=== PATIENT | male | born 1985 | race Hispanic/Latino ===

== ENCOUNTER 2023-09-14 04:20 | Emergency (ER) | payer BC ==
[~2023-09-14] VITALS: Ht 180.3 cm; Wt 112.0 kg
[2023-09-14 04:48] LABS: BASOPHILS # (AUTO) 0.02 K/uL (0.00-0.20); BASOPHILS % (AUTO) 0.2 % (0.0-5.0); HEMATOCRIT 46.5 % (42-54); IMMATURE GRANULOCYTE ABSOLUTE 0.06 K/uL (0-1); LYMPHOCYTES # (AUTO) 1.9 K/uL (1.0-4.8); LYMPHOCYTES % (AUTO) 18.9 % (21.0-51.0); MEAN CORPUSCULAR HEMOGLOBIN 28.3 pg (27.0-33.0); MEAN CORPUSCULAR VOLUME 83.3 fL (79-99); MONOCYTES # (AUTO) 0.2 K/uL (0.1-1.0); MONOCYTES % (AUTO) 2.3 % (3.0-13.0); NEUTROPHILS # (AUTO) 7.8 K/uL (1.8-7.7); PLATELET COUNT (AUTO) 288 K/uL (130-400); RED BLOOD CELL COUNT(AUTO) 5.58 MIL/uL (4.50-6.20); RED CELL DISTRIBUTION WIDTH 13.2 % (11.0-15.5); WHITE BLOOD COUNT (AUTO) 9.9 K/uL (4.8-10.8)
[2023-09-14 05:05] LABS: ALBUMIN 4.3 g/dL (3.5-5.0); BILIRUBIN,TOTAL 0.3 mg/dL (0.2-1.0); CREATININE 1.2 mg/dL (0.5-1.3); TOTAL PROTEIN, SERUM 8.7 g/dL (6.0-8.3)
[2023-09-14 05:21] LABS: POTASSIUM 2.5 mmol/L (3.5-5.1)
[2023-09-14] MEDS ORDERED: IOHEXOL 350 MG/ML 100ML INFUS..BTL IV ONE (06:07)
[2023-09-14] MEDS ORDERED: IOHEXOL-350 75 ML VIAL IV ONE (06:08)
[2023-09-14] MEDS: POTASSIUM CHLORIDE 10% ELIXIR 20 MEQ/15 ML UDCUP PO ONE (06:52)
[2023-09-14] MEDS ORDERED: POTA-192 PO (09:55)
[2023-09-14 10:14] VITALS: BP 138/80; PULSE 89; RESP 16; O2SAT 96
== END 2023-09-14 10:20 | disposition home or self-care (01) ==
LOC: EDH 04:20
DX: S84.801A Injury of other nerves at lower leg level, right leg, initial encounter (principal); S84.802A Injury of other nerves at lower leg level, left leg, initial encounter; M54.50 Low back pain, unspecified; E87.6 Hypokalemia; R53.1 Weakness; X58.XXXA Exposure to other specified factors, initial encounter; Y93.89 Activity, other specified; Y92.89 Other specified places as the place of occurrence of the external cause; Y99.8 Other external cause status
CPT/HCPCS: 72129; 99284; 83735; 80053; 85025; 36415; 72126; 72132; Q9967 ×2